=== PATIENT | male | born 1965 | race Caucasian/White ===

== ENCOUNTER → 2016-06-22 | Outpatient (CLI) | payer OTHER ==
--- NOTE | 2016-06-23 08:13 | XR ---
EXAMINATION TYPE: XR cervical spine comp DATE OF EXAM ORDERED: 06/22/2016 4:21 PM HISTORY: M54.2 Cervicalgia. COMPARISON: None. FINDINGS: There is a mild reversal of the normal cervical lordosis. Alignment is normal. Atlantoaxia l relationships are normal. The intervertebral soft tissues are normal. The intervertebral foramina a re not visualized on the left and poorly visualized on the right. There is uncovertebral joint diseas e at C6-7 as well as hypertrophic spondylosis at C4-5, C5-6 and C6-7. IMPRESSION: 1. SOMEWHAT LIMITED EXAMINATION. 2. NO ACUTE OSSEOUS LESION. 3. MODERATE DEGENERATIVE CHANGE.
--- NOTE | 2016-06-23 08:14 | XR ---
EXAMINATION TYPE: XR lumbar spine 2 or 3V DATE OF EXAM ORDERED: 06/22/2016 4:21 PM HISTORY: M54.5 Low back pain. COMPARISON: None. FINDINGS: Vertebral body height and alignment are maintained. There is no spinal IMPRESSION: 1. NO ACUTE OSSEOUS LESION. 2. DEGENERATIVE CHANGES DESCRIBED.
== END ==
LOC: RADXRMAIN 16:04
PROVIDERS: ATTEND Family Medicine
DX: M47.812 Spondylosis without myelopathy or radiculopathy, cervical region (principal); M47.816 Spondylosis without myelopathy or radiculopathy, lumbar region
CPT/HCPCS: 72050; 72100

== ENCOUNTER → 2016-07-21 | Outpatient (CLI) | payer OTHER ==
--- NOTE | 2016-07-21 11:28 | ECHOS ---
DATE OF SERVICE: 07/21/2016 AGE: 51Y SEX: M HT: 67 WT: 193 lbs. Protocol Wilner: X Others: Stress Echo Stage: III Dur. of Exercise: 9 minutes *Heart Rate Blood Pressure *Rest: 65 Rest: 120/64 * *Max. Achieved: 144 Maximum BP: 181/69 85% PMHR: 142 100% PMHR: 167 *METS: 9.6 INDICATIONS: Chest pain, short of breath. MEDICATIONS: INDICATIONS OF STUDY: Chest pain. STRESS DATA: Pretesting physical examination showed a heart rate of 65, pressure is 120/64 mmHg. Baseline EKG showed sinus rhythm. The patient exercised on the treadmill according to Wilner protocol for a total of 9 minutes and achieved 9.6 METs. Max heart rate was 144, which is about 86% of maximum predicted heart rate. Maximum blood pressure was 181/69 mmHg. Clinically, the patient did not experience any symptoms of chest pain or discomfort during the testing or in the recovery time. The patient's EKG did not show any evidence of ST changes compatible with ischemia. ECHOCARDIOGRAM IMAGES: On echocardiogram images from parasternal long axis view, parasternal short axis view, apical 4 chamber view and apical 2 chamber view were obtained as baseline images, at the peak of the heart rate, as well as on recovery and the echocardiogram images showed good augmentation in the left ventricular systolic function without any evidence of wall motion abnormalities consistent with ischemia. CONCLUSION: 1. Excellent exercise capacity. 2. Normal EKG in response to exercise. 3. Normal echocardiogram in response to exercise. 4. Essentially normal stress echocardiogram for this gentleman.
== END | disposition home or self-care (01) ==
LOC: RADNMMAIN 08:57
PROVIDERS: ATTEND Family Medicine
DX: R07.9 Chest pain, unspecified (principal)
CPT/HCPCS: 93017; 93350

== ENCOUNTER → 2022-01-10 | Outpatient (CLI) | payer BC ==
--- NOTE | 2022-01-11 02:43 | MR ---
EXAMINATION TYPE: MR knee LT wo con DATE OF EXAM: 01/10/2022 COMPARISON: None HISTORY: Left knee pain x 6 mos. Multiplanar multiecho imaging of the left knee performed without contrast. The anterior and posterior cruciate ligaments are intact. There is a mild knee joint effusion. The co llateral ligaments are intact. There is a large vertical tear through the posterior horn of the media l meniscus. There is also large horizontal tear through the posterior horn medial meniscus extending to the inferior surface. The lateral meniscus appears intact. No evidence of a fracture. No focal bone destruction. The patella appears intact. No significant join t space narrowing. IMPRESSION: Knee joint effusion. Large complex tear of the posterior horn medial meniscus. No fracture.
== END | disposition home or self-care (01) ==
LOC: RADMRIMAIN 17:23
PROVIDERS: ATTEND Orthopaedic Surgery Sports Medicine
DX: M23.322 Other meniscus derangements, posterior horn of medial meniscus, left knee (principal); M25.462 Effusion, left knee

== ENCOUNTER 2023-01-23 06:43 | Emergency (ER) | payer BC ==
--- NOTE | 2023-01-23 07:36 | ED ---
General Adult HPI - General Chief complaint: Abdominal Pain Stated complaint: Constipation Time Seen by Provider: 01/23/23 07:13 Source: patient, RN notes reviewed, old records reviewed Mode of arrival: wheelchair Limitations: no limitations - History of Present Illness Initial comments: 57-year-old male with rectal pain for the past 5 days. Pain began after having a large bowel movement. Patient denies rectal bleeding. States he had a colonoscopy within the past 10 years which she states was normal. Patient denies fever. Denies abdominal pain. Pain is only in his anus and rectum. Patient is a nonsmoker. No fever. No vomiting. Patient has colonoscopy scheduled which is 2 days from now. - Related Data Home Medications Medication Instructions Recorded Confirmed Ibuprofen 600 mg PO Q8H 01/23/23 01/25/23 Naproxen Sodium [Aleve] 220 mg PO BID 01/23/23 01/25/23 Allergies Allergy/AdvReac Type Severity Reaction Status Date / Time diphenhydramine Allergy Rash/Hives Verified 01/25/23 10:54 [From Benadryl] loratadine [From Claritin] Allergy Rash/Hives Verified 01/25/23 10:54 Review of Systems ROS Statement: Those systems with pertinent positive or pertinent negative responses have been documented in the HPI. ROS Other: All systems not noted in ROS Statement are negative. Past Medical History Past Medical History: No Reported History History of Any Multi-Drug Resistant Organisms: None Reported Past Surgical History: Orthopedic Surgery Additional Past Surgical History / Comment(s): knee, fingers Past Psychological History: No Psychological Hx Reported Smoking Status: Former smoker Past Alcohol Use History: Occasional Past Drug Use History: Marijuana General Exam Limitations: no limitations General appearance: alert, in no apparent distress Head exam: Present: atraumatic, normocephalic Eye exam: Present: normal appearance, PERRL ENT exam: Present: normal exam Neck exam: Present: normal inspection Respiratory exam: Present: normal lung sounds bilaterally. Absent: respiratory distress, wheezes Cardiovascular Exam: Present: regular rate, normal rhythm GI/Abdominal exam: Present: soft. Absent: distended, tenderness, guarding, rebound Rectal exam: Present: tenderness (Severe tenderness limiting exam, no large mass, no external hemorrhoid visible). Absent: black stool, bloody stool Extremities exam: Present: normal inspection Neurological exam: Present: alert, oriented X3, CN II-XII intact. Absent: motor sensory deficit Psychiatric exam: Present: normal affect, normal mood Skin exam: Present: warm, dry, intact. Absent: cyanosis, diaphoretic, erythema Course Vital Signs 01/23/23 01/23/23 07:08 08:21 Temperature 98.4 F 98 F Pulse Rate 67 58 L Respiratory 18 16 Rate Blood Pressure 161/89 150/80 O2 Sat by Pulse 98 99 Oximetry Medical Decision Making - Medical Decision Making Was pt. sent in by a medical professional or institution (, [facility]OR[facility], MARKETING REPRESENTATIVE, urgent care, hospital, or senior care...) When possible be specific @ -No Did you speak to anyone other than the patient for history (EMS, parent, family, police, friend...)? What history was obtained from this source @ -No Did you review nursing and triage notes (agree or disagree)? Why? @ -I reviewed and agree with nursing and triage notes Were old charts reviewed (outside hosp., previous admission, EMS record, old EKG, old radiological studies, urgent care reports/EKG's, senior care records)? Report findings @ -No old charts were reviewed Differential Diagnosis (chest pain, altered mental status, abdominal pain women, abdominal pain men, vaginal bleeding, weakness, fever, dyspnea, syncope, headache, dizziness, GI bleed, back pain, seizure, CVA, palpatations, mental health, musculoskeletal)? @Constipation, anal fissure, thrombosed hemorrhoid, rectal mass EKG interpreted by me (3pts min.). @ -As above X-rays interpreted by me (1pt min.). @ -None done CT interpreted by me (1pt min.). @ -None done U/S interpreted by me (1pt. min.). @ -None done What testing was considered but not performed or refused? (CT, X-rays, U/S, labs)? Why? @ -None What meds were considered but not given or refused? Why? @ -None Did you discuss the management of the patient with other professionals (professionals i.e. LEORA Ballard, MARKETING REPRESENTATIVE, lab, RT, psych nurse, community mental health social worker, chemistry technologist, teacher, driver license reviewing officer, immigration case worker)? Give summary @ -No Was smoking cessation discussed for >3mins.? @ -No Was critical care preformed (if so, how long)? @ -No Were there social determinants of health that impacted care today? How? (Homelessness, low income, unemployed, alcoholism, drug addiction, transportation, low edu. Level, literacy, decrease access to med. care, skilled nursing, rehab)? @ -No Was there de-escalation of care discussed even if they declined (Discuss DNR or withdrawal of care, Hospice)? DNR status @ -No What co-morbidities impacted this encounter? (DM, HTN, Smoking, COPD, CAD, Cancer, CVA, ARF, Chemo, Hep., AIDS, mental health diagnosis, sleep apnea, morbid obesity)? @ -None Was patient admitted / discharged? Hospital course, mention meds given and route, prescriptions, significant lab abnormalities, going to OR and other pertinent info. @ -[57-year-old male with pain at the anus after a large bowel movement. Patient has no abdominal tenderness, no rebound or guarding. He's afebrile. No vomiting. Rectal exam externally is unremarkable. No visualized hemorrhoids, no visualized mass. Thorough examination of the rectum is limited by patient's discomfort. He likely has fissure. He will be prescribed topical lidocaine and stool softeners. He is instructed to use sitz bath. He will follow-up with his primary care provider and if symptoms should change or worsen he will return to the emergency department. He has a colonoscopy scheduled for 2 days from now he should follow through with this. Undiagnosed new problem with uncertain prognosis? @ -No Drug Therapy requiring intensive monitoring for toxicity (Heparin, Nitro, Insulin, Cardizem)? @ -No Were any procedures done? @ -No Diagnosis/symptom? @Anal pain Acute, or Chronic, or Acute on Chronic? @ -acute Uncomplicated (without systemic symptoms) or Complicated (systemic symptoms)? @ -[default] Side effects of treatment? @ -[No] Exacerbation, Progression, or Severe Exacerbation? @ -[No] Poses a threat to life or bodily function? How? (Chest pain, USA, [place], pneumonia, PE, COPD, DKA, ARF, appy, cholecystitis, CVA, Diverticulitis, Homicidal, Suicidal, threat to staff... and all critical care pts) @ -[No] Disposition Clinical Impression: Anal or rectal pain Disposition: HOME SELF-CARE Condition: Fair Instructions (If sedation given, give patient instructions): Rectal Pain (ED) Additional Instructions: Please apply topical ointment and use sitz bath. Please follow up with her primary care provider. Is patient prescribed a controlled substance at d/c from ED?: No Referrals: Brando Pacheco MD [Primary Care Provider] - 1-2 days Time of Disposition: 07:53
--- NOTE | 2023-01-23 07:49 | XR ---
EXAMINATION TYPE: XR KUB DATE OF EXAM: 01/23/2023 COMPARISON: None HISTORY: Abdomen pain, constipation TECHNIQUE: Abdomen is examined in the upright view. FINDINGS: Normal colonic bowel gas is present. Some nonspecific small bowel gas left upper quadrant. No suspicious air-fluid levels or differential air-fluid levels are present. No free air is present. Psoas margins are normal. Organomegaly is not present. No significant fecal retention is evident. IMPRESSION: 1. Nonspecific abdomen.
[2023-01-23 08:38] VITALS: BP 150/80; PULSE 58; RESP 16; TEMP 98
== END 2023-01-23 08:23 | disposition home or self-care (01) ==
LOC: EC 06:43
DX: K62.89 Other specified diseases of anus and rectum (principal); F12.90 Cannabis use, unspecified, uncomplicated; Z88.8 Allergy status to other drugs, medicaments and biological substances; Z87.891 Personal history of nicotine dependence
CPT/HCPCS: 74018; 99283; 99284

== ENCOUNTER 2023-01-25 10:14 | Day surgery (SDC) | payer BC ==
[2023-01-25] MEDS ORDERED: LACTATED RINGERS 1,000 ML IV ONE (10:50)
[2023-01-25 11:26] VITALS: TEMP 98
[2023-01-25] MEDS ORDERED: PROPOFOL 10 MG/ML 20 ML VIAL IV ONE (11:34)
--- NOTE | 2023-01-25 11:46 | P.OP ---
Date of Procedure: 01/25/23 Preoperative Diagnosis: Change in bowel habits constipation Postoperative Diagnosis: Normal colonoscopy Procedure(s) Performed: Colonoscopy Anesthesia: MAC Surgeon: Ambrocio Sanchez Pathology: none sent Condition: stable Disposition: PACU Description of Procedure: PROCEDURE: The patient was placed on the endoscopy table in the lateral position. Digital rectal examination was performed which revealed no abnormalities. The prostate was symmetrical without nodules. Flexible colonoscope was then placed in the patient's anus and passed throughout the entire colon. The ileocecal valve was visualized. The cecum, ascending, transverse, descending and sigmoid colon were normal. The rectum was normal as well. There were no masses, polyps or diverticula noted in the entire colon. SUMMARY OF FINDINGS: Normal colonoscopy.
[2023-01-25 12:14] VITALS: BP 147/92; PULSE 67; RESP 20
== END 2023-01-25 12:23 | disposition home or self-care (01) ==
LOC: ORWHC2ENDO 10:14
PROVIDERS: ATTEND Surgery
DX: K59.00 Constipation, unspecified (principal); F10.90 Alcohol use, unspecified, uncomplicated; Z88.8 Allergy status to other drugs, medicaments and biological substances
CPT/HCPCS: 45378; J2704

== ENCOUNTER 2023-01-29 10:05 | Observation (INO) | payer BC ==
[2023-01-29 11:29] LABS: Basophils % (A) 0 %; Eosinophils # (A) 0.1 k/uL (0-0.7); Eosinophils % (A) 1 %; HCT 41.1 % (39.0-53.0); Lymphocytes # (A) 1.8 k/uL (1.0-4.8); Lymphocytes % (A) 12 %; MCH 30.7 pg (25.0-35.0); MCV 90.5 fL (80.0-100.0); Mean Platelet Volume 7.9; Monocytes # (A) 0.6 k/uL (0-1.0); Monocytes % (A) 4 %; Neutrophils # (A) 12.5 k/uL (1.3-7.7); Neutrophils % (A) 82 %; Platelet Count 456 k/uL (150-450); RBC 4.54 m/uL (4.30-5.90); RDW 12.3 % (11.5-15.5); WBC 15.1 k/uL (3.8-10.6)
[2023-01-29 11:49] LABS: ALT 15 U/L (4-49); AST 21 U/L (17-59); African American GFR (CKD) >90 (>60 ml/min/1.73 sqM); Albumin 3.5 g/dL (3.5-5.0); Alkaline Phosphatase 83 U/L (38-126); Anion Gap 11 mmol/L; Blood Urea Nitrogen 12 mg/dL (9-20); Calcium 8.8 mg/dL (8.4-10.2); Carbon Dioxide 25 mmol/L (22-30); Chloride 103 mmol/L (98-107); Glucose 106 mg/dL (74-99); Non-African American GFR(CKD) >90 (>60 ml/min/1.73 sqM); Potassium 4.1 mmol/L (3.5-5.1); Sodium 139 mmol/L (137-145); Total Bilirubin 0.5 mg/dL (0.2-1.3); Total Protein 6.5 g/dL (6.3-8.2)
--- NOTE | 2023-01-29 11:54 | CT ---
EXAMINATION TYPE: CT pelvis w con DATE OF EXAM: 01/29/2023 COMPARISON: None INDICATION: Rectal/tailbone pain. Hurts with bowel movement. Recently had clean colonoscopy. DLP: 698 mGycm, Automated exposure control for dose reduction was used. CONTRAST: 100 mL of Isovue 300. Study performed without Oral Contrast TECHNIQUE: Axial images were obtained from above the diaphragm to the pubic rami in the axial plane a t 5 mm thick sections. Reconstructed images are reviewed on the computer in the coronal plane. FINDINGS: CT PELVIS: Loops of bowel within the abdomen and pelvis are normal. This study is performed without oral con trast limiting bowel evaluation. Appendix: Normal as visualized. Urinary bladder: Normal. Genitourinary structures: Prostate appears normal. Osseous structures: No suspicious lytic or sclerotic lesions. Small bone islands within the neck of t he right hip. Sacrum and coccyx appear intact. No acute osseous abnormality of the sacrum or coccyx IMPRESSION: 1. No suspicious abnormality to account for pain in the tailbone.
[2023-01-29] MEDS ORDERED: ONDANSETRON 4 MG/2 ML VIAL IVP PRN (13:45)
[2023-01-29] MEDS ORDERED: NALOXONE 0.4 MG/ML 1 ML VIAL IV PRN (13:45)
[2023-01-29] MEDS ORDERED: HYDROmorphone 0.5 MG/0.5 ML SYRINGE IVP PRN (13:45)
[2023-01-29] MEDS ORDERED: HYDROcodone/APAP 5-325MG 1 EACH TAB PO PRN (13:45)
--- NOTE | 2023-01-29 14:05 | ED ---
General Adult HPI - General Chief complaint: Back Pain/Injury Stated complaint: Pain in tailbone Time Seen by Provider: 01/29/23 10:33 Source: patient, RN notes reviewed Mode of arrival: ambulatory Limitations: no limitations - History of Present Illness Initial comments: 4-year-old male presents emergency department with chief complaint of or rectal pain. Patient states she's been having increasing symptoms. Patient was seen in emergency Department last week told to follow-up colonoscopy. He states he did follow-up with colonoscopy which was clear. He continues to have pain worse when he sits he states he has pain with bowel movement. He reports night sweats, possible fever and chills. - Related Data Home Medications Medication Instructions Recorded Confirmed Ibuprofen 600 mg PO Q8H 01/23/23 01/25/23 Naproxen Sodium [Aleve] 220 mg PO BID 01/23/23 01/25/23 Allergies Allergy/AdvReac Type Severity Reaction Status Date / Time diphenhydramine Allergy Rash/Hives Verified 01/29/23 10:12 [From Benadryl] loratadine [From Claritin] Allergy Rash/Hives Verified 01/29/23 10:12 Review of Systems ROS Statement: Those systems with pertinent positive or pertinent negative responses have been documented in the HPI. ROS Other: All systems not noted in ROS Statement are negative. Past Medical History Past Medical History: No Reported History History of Any Multi-Drug Resistant Organisms: None Reported Past Surgical History: Orthopedic Surgery Additional Past Surgical History / Comment(s): knee, fingers Past Psychological History: No Psychological Hx Reported Smoking Status: Former smoker Past Alcohol Use History: Occasional Past Drug Use History: Marijuana General Exam Limitations: no limitations General appearance: alert, in no apparent distress Head exam: Present: atraumatic, normocephalic, normal inspection Neck exam: Present: normal inspection. Absent: tenderness, meningismus, lymphadenopathy Respiratory exam: Present: normal lung sounds bilaterally. Absent: respiratory distress, wheezes, rales, rhonchi, stridor Cardiovascular Exam: Present: regular rate, normal rhythm, normal heart sounds. Absent: systolic murmur, diastolic murmur, rubs, gallop, clicks GI/Abdominal exam: Present: soft, normal bowel sounds. Absent: distended, tenderness, guarding, rebound, rigid Rectal exam: Present: tenderness. Absent: mass Course Vital Signs 01/29/23 10:09 Temperature 98.1 F Pulse Rate 76 Respiratory 20 Rate Blood Pressure 157/94 O2 Sat by Pulse 99 Oximetry Medical Decision Making - Medical Decision Making Was pt. sent in by a medical professional or institution (LEORA Ballard, LUGGAGE ATTENDANT, urgent care, hospital, or prison...) When possible be specific @ -Surgeon Did you speak to anyone other than the patient for history (EMS, parent, family, police, friend...)? What history was obtained from this source @ -No Did you review nursing and triage notes (agree or disagree)? Why? @ -I reviewed and agree with nursing and triage notes Were old charts reviewed (outside hosp., previous admission, EMS record, old EKG, old radiological studies, urgent care reports/EKG's, prison records)? Report findings @ -No old charts were reviewed Differential Diagnosis (chest pain, altered mental status, abdominal pain women, abdominal pain men, vaginal bleeding, weakness, fever, dyspnea, syncope, headache, dizziness, GI bleed, back pain, seizure, CVA, palpatations, mental health, musculoskeletal)? @ -[Perirectal abscess, pilonidal cyst, abscess, hemorrhoids EKG interpreted by me (3pts min.). @ -None X-rays interpreted by me (1pt min.). @ -None done CT interpreted by me (1pt min.). @ -CT pelvis shows evidence of inflammatory changes around the rectum concerning for developing abscess U/S interpreted by me (1pt. min.). @ -None done What testing was considered but not performed or refused? (CT, X-rays, U/S, labs)? Why? @ -None What meds were considered but not given or refused? Why? @ -None Did you discuss the management of the patient with other professionals (professionals i.e. LEORA Ballard, LUGGAGE ATTENDANT, lab, RT, psych nurse, social media community manager, entry level programmer, teacher, banking services officer, case making machine operator)? Give summary @ -[Dr. Sanchez for admission secondary to her rectal abscess, leukocytosis Was smoking cessation discussed for >3mins.? @ -No Was critical care preformed (if so, how long)? @ -No Were there social determinants of health that impacted care today? How? (Homelessness, low income, unemployed, alcoholism, drug addiction, transportation, low edu. Level, literacy, decrease access to med. care, prison, rehab)? @ -No Was there de-escalation of care discussed even if they declined (Discuss DNR or withdrawal of care, Hospice)? DNR status @ -No What co-morbidities impacted this encounter? (DM, HTN, Smoking, COPD, CAD, Cancer, CVA, ARF, Chemo, Hep., AIDS, mental health diagnosis, sleep apnea, morbid obesity)? @ -None Was patient admitted / discharged? Hospital course, mention meds given and route, prescriptions, significant lab abnormalities, going to OR and other per tinent info. @ -Admitted patient will be admitted to the surgeon on IV antibiotics for perirectal abscess Undiagnosed new problem with uncertain prognosis? @ -No Drug Therapy requiring intensive monitoring for toxicity (Heparin, Nitro, Insulin, Cardizem)? @ -No Were any procedures done? @ -No Diagnosis/symptom? @ -Perirectal abscess Acute, or Chronic, or Acute on Chronic? @ -Acute Uncomplicated (without systemic symptoms) or Complicated (systemic symptoms)? @ -Uncomplicated Side effects of treatment? @ -No Exacerbation, Progression, or Severe Exacerbation? @ -No Poses a threat to life or bodily function? How? (Chest pain, USA, [place], pneumonia, PE, COPD, DKA, ARF, appy, cholecystitis, CVA, Diverticulitis, Homicidal, Suicidal, threat to staff... and all critical care pts) @ -No - Lab Data Result diagrams: 01/29/23 11:07 01/29/23 11:07 Lab Results 01/29/23 01/29/23 01/29/23 Range/Units 11:07 11:07 11:07 WBC 15.1 H (3.8-10.6) k/uL RBC 4.54 (4.30-5.90) m/uL Hgb 14.0 (13.0-17.5) gm/dL Hct 41.1 (39.0-53.0) % MCV 90.5 (80.0-100.0) fL MCH 30.7 (25.0-35.0) pg MCHC 34.0 (31.0-37.0) g/dL RDW 12.3 (11.5-15.5) % Plt Count 456 H (150-450) k/uL MPV 7.9 Neutrophils % 82 % Lymphocytes % 12 % Monocytes % 4 % Eosinophils % 1 % Basophils % 0 % Neutrophils # 12.5 H (1.3-7.7) k/uL Lymphocytes # 1.8 (1.0-4.8) k/uL Monocytes # 0.6 (0-1.0) k/uL Eosinophils # 0.1 (0-0.7) k/uL Basophils # 0.0 (0-0.2) k/uL Sodium 139 (137-145) mmol/L Potassium 4.1 (3.5-5.1) mmol/L Chloride 103 (98-107) mmol/L Carbon Dioxide 25 (22-30) mmol/L Anion Gap 11 mmol/L BUN 12 (9-20) mg/dL Creatinine 0.80 (0.66-1.25) mg/dL Est GFR (CKD-EPI)AfAm >90 (>60 ml/min/1.73 sqM) Est GFR (CKD-EPI)NonAf >90 (>60 ml/min/1.73 sqM) Glucose 106 H (74-99) mg/dL Plasma Lactic Acid Mohinder 1.0 (0.7-2.0) mmol/L Calcium 8.8 (8.4-10.2) mg/dL Total Bilirubin 0.5 (0.2-1.3) mg/dL AST 21 (17-59) U/L ALT 15 (4-49) U/L Alkaline Phosphatase 83 (38-126) U/L Total Protein 6.5 (6.3-8.2) g/dL Albumin 3.5 (3.5-5.0) g/dL Disposition Clinical Impression: Perirectal abscess Disposition: ADMITTED IP TO THIS HOSP Condition: Fair Referrals: Brando Pacheco MD [Primary Care Provider] - 1-2 days Time of Disposition: 13:08
[2023-01-29] MEDS: PIPERACILLIN-TAZOBACTAM 3.375 GM in SODIUM CHLORIDE 0.9% 100 ML IVPB SCH (15:22)
--- NOTE | 2023-01-29 15:36 | P.GSHP ---
History of Present Illness H&P Date: 01/29/23 CHIEF COMPLAINT: Rectal pain HISTORY OF PRESENT ILLNESS: This is a 4-year-old male who presented to the hospital with complaint of rectal pain 2 weeks. He reports having severe constipation and straining to have bowel movements and then afterwards started have significant rectal pain. He continues to have pain after bowel movements. He has been feverish with chills and sweats. He describes the pain around the rectum as burning. He denies any blood in the stools. He had a normal colonoscopy on 01/25/2023. Computed tomography scan of pelvis there is some perirectal thickening. There is some hypodensity measuring 1.7 x 1.4 cm. A developing perirectal abscess posterior to the rectum may be present. Phlegmon formation could be considered. Patient denies any prior history of abscesses. Denies any history of diabetes. PAST MEDICAL HISTORY: none PAST SURGICAL HISTORY: See below MEDICATIONS: See below ALLERGIES: See below SOCIAL HISTORY: No illicit drug use. REVIEW OF SYSTEMS: CONSTITUTIONAL: Denies fever or chills. HEENT: Denies blurred vision, vision changes, or eye pain. Denies hemoptysis CARDIOVASCULAR: Denies chest pain or pressure. RESPIRATORY: No shortness of breath. GASTROINTESTINAL: See HPI for pertinent findings HEMATOLOGIC: Denies bleeding disorders. GENITOURINARY: Denies any blood in urine or increased urinary frequency. SKIN: Denies pruitis. Denies rash. PHYSICAL EXAM: VITAL SIGNS: Reviewed GENERAL: Well-developed in no acute distress. HEENT: No sclera icterus. Extraocular movements grossly intact. Moist buccal mucosa. Head is atraumatic, normocephalic. No nasal drainage. ABDOMEN: Soft. Nondistended. nontender NEUROLOGIC: Alert and oriented. Cranial nerves II through XII grossly intact. Rectal: Patient very tender to palpation posterior to the anus. No drainage, erythema noted LABORATORY DATA: WBC 15.1 Hgb 14.0 platelets 456 Sodium 139 potassium 4.1 creatinine 0.80 Lactic acid 1.0 Glucose 106 IMAGING: Computed tomography scan abdomen and pelvis perirectal thickening. Hypodensity measuring approximately 1.7 x 1.4 cm. Developing perirectal abscess posterior to the rectum may be present. Phlegmon formation could be considered. Large hypodense area within the expected region of the right iliac chain region. ASSESSMENT: 1. Pain posterior to rectum. Computed tomography scan showing hypodensity and possible developing perirectal abscess or phlegmon PLAN: -Start IV antibiotics -Continue to observe -Continue pain management -Continue clear liquids -Repeat labs in a.m. -DVT prophylaxis subcu heparin Physician [employer] Tender note has been reviewed by physician. Signing provider agrees with the documented findings, assessment, and plan of care. Past Medical History Past Medical History: No Reported History History of Any Multi-Drug Resistant Organisms: None Reported Past Surgical History: Orthopedic Surgery Additional Past Surgical History / Comment(s): knee, fingers Past Psychological History: No Psychological Hx Reported Smoking Status: Former smoker Past Alcohol Use History: Occasional Past Drug Use History: Marijuana Medications and Allergies Home Medications Medication Instructions Recorded Confirmed Type Acetaminophen Tab [Tylenol] 650 mg PO Q6H PRN 01/29/23 01/29/23 History Amoxicillin 500 mg PO TID 01/29/23 01/29/23 History Docusate Sodium [Dok] 100 mg PO BID PRN 01/29/23 01/29/23 History Ibuprofen [Motrin] 600 mg PO Q6HR PRN 01/29/23 01/29/23 History Allergies Allergy/AdvReac Type Severity Reaction Status Date / Time diphenhydramine Allergy Rash/Hives Verified 01/29/23 14:40 [From Benadryl] loratadine [From Claritin] Allergy Rash/Hives Verified 01/29/23 14:40 Surgical - Exam Vital Signs Temp Pulse Resp BP Pulse Ox 98.1 F 76 20 157/94 99 01/29/23 10:09 01/29/23 10:09 01/29/23 10:09 01/29/23 10:09 01/29/23 10:09 Results - Labs 01/29/23 11:07 01/29/23 11:07 Abnormal Lab Results - Last 24 Hours (Table) 01/29/23 01/29/23 Range/Units 11:07 11:07 WBC 15.1 H (3.8-10.6) k/uL Plt Count 456 H (150-450) k/uL Neutrophils # 12.5 H (1.3-7.7) k/uL Glucose 106 H (74-99) mg/dL Diabetes panel 01/29/23 Range/Units 11:07 Sodium 139 (137-145) mmol/L Potassium 4.1 (3.5-5.1) mmol/L Chloride 103 (98-107) mmol/L Carbon Dioxide 25 (22-30) mmol/L BUN 12 (9-20) mg/dL Creatinine 0.80 (0.66-1.25) mg/dL Glucose 106 H (74-99) mg/dL Calcium 8.8 (8.4-10.2) mg/dL AST 21 (17-59) U/L ALT 15 (4-49) U/L Alkaline Phosphatase 83 (38-126) U/L Total Protein 6.5 (6.3-8.2) g/dL Albumin 3.5 (3.5-5.0) g/dL Calcium panel 01/29/23 Range/Units 11:07 Calcium 8.8 (8.4-10.2) mg/dL Albumin 3.5 (3.5-5.0) g/dL Pituitary panel 01/29/23 Range/Units 11:07 Sodium 139 (137-145) mmol/L Potassium 4.1 (3.5-5.1) mmol/L Chloride 103 (98-107) mmol/L Carbon Dioxide 25 (22-30) mmol/L BUN 12 (9-20) mg/dL Creatinine 0.80 (0.66-1.25) mg/dL Glucose 106 H (74-99) mg/dL Calcium 8.8 (8.4-10.2) mg/dL Adrenal panel 01/29/23 Range/Units 11:07 Sodium 139 (137-145) mmol/L Potassium 4.1 (3.5-5.1) mmol/L Chloride 103 (98-107) mmol/L Carbon Dioxide 25 (22-30) mmol/L BUN 12 (9-20) mg/dL Creatinine 0.80 (0.66-1.25) mg/dL Glucose 106 H (74-99) mg/dL Calcium 8.8 (8.4-10.2) mg/dL Total Bilirubin 0.5 (0.2-1.3) mg/dL AST 21 (17-59) U/L ALT 15 (4-49) U/L Alkaline Phosphatase 83 (38-126) U/L Total Protein 6.5 (6.3-8.2) g/dL Albumin 3.5 (3.5-5.0) g/dL
[2023-01-29] MEDS: ACETAMINOPHEN TAB 325 MG TAB PO PRN (16:52)
[2023-01-29] MEDS: FAMOTIDINE 20 MG TAB PO SCH (21:02)
[2023-01-29] MEDS: HEPARIN SODIUM,PORCINE 5,000 UNIT/ML 1 ML VIAL SQ SCH (21:02)
[2023-01-30] MEDS: PIPERACILLIN-TAZOBACTAM 3.375 GM in SODIUM CHLORIDE 0.9% 100 ML IVPB SCH ×4 (00:16→23:25)
[2023-01-30] MEDS: HEPARIN SODIUM,PORCINE 5,000 UNIT/ML 1 ML VIAL SQ SCH ×2 (08:13→19:56)
[2023-01-30] MEDS: FAMOTIDINE 20 MG TAB PO SCH ×2 (08:14→19:56)
[2023-01-30 11:10] LABS: Basophils # (A) 0.05 X 10*3/uL (0.00-0.10); Basophils % (A) 0.4 %; Eosinophils # (A) 0.21 X 10*3/uL (0.04-0.35); Eosinophils % (A) 1.6 %; HCT 39.2 % (39.6-50.0); HGB 13.1 g/dL (13.0-17.0); Lymphocytes # (A) 2.92 X 10*3/uL (0.90-5.00); Lymphocytes % (A) 22.7 %; MCH 30.4 pg (27.0-32.0); MCHC 33.4 g/dL (32.0-37.0); Mean Platelet Volume 10.3 FL (9.5-12.2); Monocytes # (A) 0.95 X 10*3/uL (0.20-1.00); Monocytes % (A) 7.4 %; NRBC Per 100 WBC 0 X 10*3/uL (0.00-0.01); Neutrophils # (A) 8.68 X 10*3/uL (1.80-7.70); Neutrophils % (A) 67.6 %; Platelet Count 504 X 10*3/uL (140-440); RBC 4.31 X 10*6/uL (4.40-5.60); RDW 12.3 % (11.5-14.5); WBC 12.85 X 10*3/uL (4.50-10.00)
--- NOTE | 2023-01-30 16:27 | P.PN ---
Subjective Progress Note Date: 01/30/23 CHIEF COMPLAINT: Rectal pain HISTORY OF PRESENT ILLNESS: Patient reports his perirectal pain is improving. He is able to walk easier. He is able to sit. WBC is down from 15-12.85 PHYSICAL EXAM: VITAL SIGNS: Reviewed. GENERAL: Well-developed in no acute distress. ABDOMEN: Soft. Nondistended. Nontender. NEUROLOGIC: Alert and oriented. Cranial nerves II through XII grossly intact. ASSESSMENT: 1. Perirectal phlegmon PLAN: -Continue antibiotics -Consult infectious disease -Continue pain management -Advance diet to full liquids -Repeat CBC in a.m. -No surgical intervention planned at this time Physician Director Medical Economics note has been reviewed by physician. Signing provider agrees with the documented findings, assessment, and plan of care. Objective - Vital Signs Vital signs: Vital Signs Temp 98.2 F 01/30/23 07:41 Pulse 71 01/30/23 07:41 Resp 16 01/30/23 07:41 BP 151/77 01/30/23 07:41 Pulse Ox 99 01/30/23 07:41 FiO2 Intake & Output 01/29/23 01/30/23 01/30/23 18:59 06:59 18:59 Weight 83.915 kg - Labs CBC & Chem 7: 01/30/23 07:41 01/29/23 11:07 Labs: Abnormal Lab Results - Last 24 Hours (Table) 01/30/23 Range/Units 07:41 WBC 12.85 H (4.50-10.00) X 10*3/uL RBC 4.31 L (4.40-5.60) X 10*6/uL Hct 39.2 L (39.6-50.0) % Plt Count 504 H (140-440) X 10*3/uL Neutrophils # 8.68 H (1.80-7.70) X 10*3/uL
--- NOTE | 2023-01-30 23:13 | P.CONS ---
History of Present Illness - Reason for Consult Consult date: 01/30/23 - History of Present Illness Patient is a 58-year-old male with no significant past medical history patient apparently mentioned he was constipated about 2 weeks ago and the patient really forced it out after the bowel movement the patient noticed to have some discomfort in his rectal area that has progressively get worse to the point that the patient did have difficulty walking with it patient has been evaluated by general surgery in the outpatient setting as well as in the ER and the patient was given some pain medication along with stool softener patient also have a colonoscopy done in the outpatient setting and was told everything was okay patient mention he did have worsening symptoms of pain to the perirectal area describing it to be severe without any radiation and associated difficulty walking or sitting patient denies having any drainage with the symptoms the patient was advised to go to the ER patient on presentation to the hospital was afebrile did have 1 low-grade fever of 99.3 F patient did have a white count of 15.1 with a left shift creatinine 0.80 limits of the normal patient did have a CT of the pelvis with evidence of perirectal thickening hyperdensity measuring 1.7X 1.4 cm developing perirectal abscess or phlegmon formation should be considered patient was admitted to the hospital started on Zosyn infectious disease was consulted today for further management of antibiotic therapy Past Medical History Past Medical History: No Reported History History of Any Multi-Drug Resistant Organisms: None Reported Past Surgical History: Orthopedic Surgery Additional Past Surgical History / Comment(s): knee, fingers Past Psychological History: No Psychological Hx Reported Smoking Status: Former smoker Past Alcohol Use History: Occasional Past Drug Use History: Marijuana - Past Family History Brother(s) Family Medical History: Diabetes Mellitus Additional Family Medical History / Comment(s): heart cath with stents, [place] Medications and Allergies Home Medications Medication Instructions Recorded Confirmed Type Acetaminophen Tab [Tylenol] 650 mg PO Q6H PRN 01/29/23 01/29/23 History Amoxicillin 500 mg PO TID 01/29/23 01/29/23 History Docusate Sodium [Dok] 100 mg PO BID PRN 01/29/23 01/29/23 History Ibuprofen [Motrin] 600 mg PO Q6HR PRN 01/29/23 01/29/23 History Allergies Allergy/AdvReac Type Severity Reaction Status Date / Time diphenhydramine Allergy Rash/Hives Verified 01/29/23 14:40 [From Benadryl] loratadine [From Claritin] Allergy Rash/Hives Verified 01/29/23 14:40 Physical Exam Vitals: Vital Signs Temp Pulse Resp BP Pulse Ox 01/30/23 07:41 98.2 F 71 16 151/77 99 01/30/23 02:28 97.9 F 76 18 133/77 96 Intake and Output 01/30/23 01/30/23 01/30/23 06:59 14:59 22:59 Other: Weight 83.915 kg Results CBC & Chem 7: 01/30/23 07:41 01/29/23 11:07 Labs: Abnormal Lab Results - Last 24 Hours (Table) 01/30/23 Range/Units 07:41 WBC 12.85 H (4.50-10.00) X 10*3/uL RBC 4.31 L (4.40-5.60) X 10*6/uL Hct 39.2 L (39.6-50.0) % Plt Count 504 H (140-440) X 10*3/uL Neutrophils # 8.68 H (1.80-7.70) X 10*3/uL Assessment and Plan Plan: 1patient was in the hospital with increasing pain to the perirectal area started about 2 weeks ago after the patient did have a hard bowel movement all with the patient really straining on now with evidence of abnormal pelvic CT concerning for perirectal inflammation/phlegmon formation and also have elevated white count likely pathogen need to cover will be enteric gram-negative both aerobes and anaerobes 2-Zosyn 3.375 g every 8 hour should provide adequate antibiotic coverage and will be continued We will follow on clinical condition and cultures to further adjust medication if needed Thank you for this consultation we will follow the patient along with you Dictation was produced using [employer] dictation software. please excuse any grammatical, word or spelling errors. Time with Patient: Greater than 30
[2023-01-30] MEDS: ACETAMINOPHEN TAB 325 MG TAB PO PRN (23:23)
[2023-01-31 08:04] VITALS: BP 151/87; PULSE 62; RESP 18; TEMP 98.1
[2023-01-31] MEDS: FAMOTIDINE 20 MG TAB PO SCH (08:16)
[2023-01-31] MEDS: PIPERACILLIN-TAZOBACTAM 3.375 GM in SODIUM CHLORIDE 0.9% 100 ML IVPB SCH (08:16)
[2023-01-31] MEDS: HEPARIN SODIUM,PORCINE 5,000 UNIT/ML 1 ML VIAL SQ SCH (08:16)
[2023-01-31 08:39] LABS: Basophils # (A) 0.03 X 10*3/uL (0.00-0.10); Basophils % (A) 0.3 %; Eosinophils # (A) 0.23 X 10*3/uL (0.04-0.35); Eosinophils % (A) 2.7 %; HCT 40.6 % (39.6-50.0); HGB 13.8 g/dL (13.0-17.0); Lymphocytes # (A) 2.58 X 10*3/uL (0.90-5.00); Lymphocytes % (A) 29.9 %; MCV 88.3 FL (80.0-97.0); Mean Platelet Volume 9.6 FL (9.5-12.2); Monocytes # (A) 0.69 X 10*3/uL (0.20-1.00); NRBC Per 100 WBC 0 X 10*3/uL (0.00-0.01); Neutrophils # (A) 5.06 X 10*3/uL (1.80-7.70); Neutrophils % (A) 58.8 %; Platelet Count 499 X 10*3/uL (140-440); RDW 12.3 % (11.5-14.5); WBC 8.62 X 10*3/uL (4.50-10.00)
--- NOTE | 2023-01-31 12:30 | P.DS ---
Providers Date of admission: 01/29/23 13:49 Expected date of discharge: 01/31/23 Attending physician: Ambrocio Sanchez Consults: 01/30/23 15:04 Consult Physician Routine Consulting Provider: Abdelrahman Mattson Consult Reason/Comments: Perirectal phlegmon Do you want consulting provider notified?: Yes Primary care physician: Brando Velasquez [facility] Course: Discharge diagnosis 1. Perirectal phlegmon Hospital course This is a 58-year-old male who presented to the hospital with complaints of pain located around the perirectal area. Computed tomography scan of the pelvis completed reported some perirectal thickening. Hypodensity measuring approximately 1.7 x 1.4 cm. Developing perirectal abscess posterior to the rectum may be present. Phlegmon information could be considered. Patient treated with IV antibiotics for a perirectal phlegmon. Patient's pain has improved. He is ambulating and is able to sit. He is tolerating diet. Afebrile. His white count has normalized. Patient will be discharged home with oral antibiotics. He is stable for discharge. Please refer to chart for any further details. Physician Manager Research note has been reviewed by physician. Signing provider agrees with the documented findings, assessment, and plan of care. Patient Condition at Discharge: Stable Plan - Discharge Summary Discharge Rx Participant: Yes New Discharge Prescriptions: New metroNIDAZOLE [Flagyl] 500 mg PO TID 10 Days #30 tab Levofloxacin [Levaquin] 500 mg PO DAILY 10 Days #10 tab Ibuprofen [Motrin] 600 mg PO Q8HR PRN #30 tab PRN Reason: Pain oxyCODONE HCL [OxyIR] 5 mg PO Q6H PRN 3 Days #12 tab PRN Reason: Pain Continue Docusate Sodium [Dok] 100 mg PO BID PRN PRN Reason: Constipation Acetaminophen Tab [Tylenol] 650 mg PO Q6H PRN PRN Reason: Fever And/ Or Pain Discontinued Ibuprofen [Motrin] 600 mg PO Q6HR PRN PRN Reason: Fever And/ Or Pain Amoxicillin 500 mg PO TID Discharge Medication List Acetaminophen Tab [Tylenol] 650 mg PO Q6H PRN 01/29/23 [History] Docusate Sodium [Dok] 100 mg PO BID PRN 01/29/23 [History] Ibuprofen [Motrin] 600 mg PO Q8HR PRN #30 tab 01/31/23 [Rx] Levofloxacin [Levaquin] 500 mg PO DAILY 10 Days #10 tab 01/31/23 [Rx] metroNIDAZOLE [Flagyl] 500 mg PO TID 10 Days #30 tab 01/31/23 [Rx] oxyCODONE HCL [OxyIR] 5 mg PO Q6H PRN 3 Days #12 tab 01/31/23 [Rx] Follow up Appointment(s)/Referral(s): Brando Pacheco MD [Primary Care Provider] - 1-2 days Ambrocio Sanchez MD [STAFF PHYSICIAN] - 02/13/23 1:00 pm Activity/Diet/Wound Care/Special Instructions: Shower Daily Regular diet Discharge Disposition: HOME SELF-CARE
== END 2023-01-31 12:30 | disposition home or self-care (01) ==
LOC: EC 10:05 → 6NMEDSUR 13:49
PROVIDERS: ADMIT Surgery; ATTEND Surgery
DX: K61.1 Rectal abscess (principal); Z87.891 Personal history of nicotine dependence
CPT/HCPCS: 96366 ×4; 96372 ×4; 96365; 96375; 99285; 36415; 80053; 83605; 85025 ×3; 87040; 72193; G0378 ×3; J2543 ×3; J1644 ×3; J1170; Q9967

== ENCOUNTER → 2024-01-01 | Outpatient (CLI) | payer BC ==
[2024-01-01 16:32] VITALS: BP 144/90; PULSE 61; RESP 18; TEMP 97.7
--- NOTE | 2024-01-01 16:54 | P.SLEEP ---
History of Present Illness H&P Date: 01/01/24 The patient has been diagnosed having sleep apnea several years back. At that time, the patient was given a home sleep study through his primary care physician. Subsequently, he was given a CPAP machine which she tried for few days and he was unable to tolerate and returned the machine back. Since then, the patient has lost around 20 pounds. He is coming in for evaluation as his was very much concerned of his ongoing snoring. Nevertheless, the patient clearly has a component of insufficient sleep syndrome. He works in [employer] and he lives and [place]. He goes back and forth every day and he works from 5 AM till 5 PM. He goes to bed between 10 to 11 PM and he wakes up 3:10 AM in the morning. As such, the patient is averaging around 4 to 4-1/2 hours of sleep. On weekends, he gets out of bed at around 6 AM and even sleeps approximately 6 to 7 hours. While on the job, he is functional. Does not fall asleep unless he is quite inactive. Does not fall asleep while driving. No 70 motor vehicle accident because of feeling drowsy or sleepy. As mentioned, the patient has lost around 20 pounds. His current body mass index is down to 32.9. No angina. No palpitations. Not nighttime chest pain or shortness of breath. No restlessness in lower extremities. No nocturia. Denies waking up choking and gasping for air. No nightmares. No anxiety. No depression. Does not take any naps after he comes back from work. He gets busy around the house and ultimately goes to bed and sleep at around 10 PM. No sleep paralysis. No hallucinations. No cataplexy. Review of Systems Constitutional: Reports daytime sleepiness, Reports fatigue Eyes: denies as per HPI, denies blurred vision, denies bulging eye, denies decreased vision, denies diplopia, denies discharge, denies dry eye, denies irritation, denies itching, denies pain, denies photophobia, denies loss of peripheral vision, denies loss of vision, denies tunnel vision/blind spots Ears: deny: decreased hearing, ear discharge, earache, tinnitus Ears, nose, mouth and throat: Reports as per HPI Breasts: absent: as per HPI, gynecomastia Cardiovascular: Reports as per HPI Respiratory: Reports snoring Gastrointestinal: Reports as per HPI Genitourinary: Reports as per HPI Musculoskeletal: Reports as per HPI Musculoskeletal: absent: ankle pain, ankle stiffness, ankle swelling, as per HPI, elbow pain, elbow stiffness, elbow swelling, foot pain, foot stiffness, foot swelling, hand pain, hand stiffness, hand swelling, hip pain, hip stiffness, hip swelling, knee pain, knee stiffness, knee swelling, shoulder pain, shoulder stiffness, shoulder swelling, wrist pain, wrist stiffness, wrist swelling Integumentary: Reports as per HPI Neurological: Reports as per HPI Psychiatric: Reports hypersomnia, Reports sleep disturbances Endocrine: Reports as per HPI, Reports fatigue Hematologic/Lymphatic: Reports as per HPI Allergic/Immunologic: Reports as per HPI Past Medical History Past Medical History: No Reported History, Hypertension Additional Past Medical History / Comment(s): History of perianal abscess History of Any Multi-Drug Resistant Organisms: None Reported Past Surgical History: Orthopedic Surgery Additional Past Surgical History / Comment(s): knee, fingers Past Psychological History: No Psychological Hx Reported Smoking Status: Former smoker Past Alcohol Use History: Occasional Past Drug Use History: Marijuana - Past Family History Brother(s) Family Medical History: Diabetes Mellitus Additional Family Medical History / Comment(s): heart cath with stents, [place] Medications and Allergies Home Medications Medication Instructions Recorded Confirmed Type Acetaminophen Tab [Tylenol] 650 mg PO Q6H PRN 01/29/23 01/29/23 History Docusate Sodium [Dok] 100 mg PO BID PRN 01/29/23 01/29/23 History Ibuprofen [Motrin] 600 mg PO Q8HR PRN #30 tab 01/31/23 Rx Levofloxacin [Levaquin] 500 mg PO DAILY 10 Days #10 tab 01/31/23 Rx metroNIDAZOLE [Flagyl] 500 mg PO TID 10 Days #30 tab 01/31/23 Rx oxyCODONE HCL [OxyIR] 5 mg PO Q6H PRN 3 Days #12 tab 01/31/23 Rx Aspirin [Adult Low Dose Aspirin EC] 81 mg PO DAILY 01/01/24 01/01/24 History Losartan Potassium 50 mg PO DAILY 01/01/24 01/01/24 History Allergies Allergy/AdvReac Type Severity Reaction Status Date / Time diphenhydramine Allergy Rash/Hives Verified 12/11/23 14:40 [From Benadryl] loratadine [From Claritin] Allergy Rash/Hives Verified 01/29/23 14:40 Physical Exam Vitals: Vital Signs Temp Pulse Resp BP Pulse Ox 01/01/24 16:31 97.7 F 61 18 144/90 96 Intake and Output 01/01/24 01/01/24 01/01/24 06:59 14:59 22:59 Other: Weight 91.852 kg The patient appeared well nourished and normally developed. Vital signs as documented. Head exam is unremarkable. No scleral icterus or corneal arcus noted. Neck is without jugular venous distension, thyromegaly, or carotid bruits. Carotid upstrokes are brisk bilaterally. Lungs are clear to auscultation and percussion. Cardiac exam reveals the PMI to be normally sized and situated. Rhythm is regular. First and second heart sounds normal. No murmurs, rubs or gallops. Abdominal exam reveals normal bowel sounds, no masses, no organomegaly and no aortic enlargement. Extremities are nonedematous and both femoral and pedal pulses are normal. Examination of the skin revealed no evidence of significant rashes, suspicious a ppearing nevi or other concerning lesions. Neurologically, the patient is awake and alert and the patient does not have any focal neurological deficit. Cranial nerves are essentially intact. Assessment and Plan Plan: Obstructive sleep apnea, failed CPAP therapy in the past and the patient is coming in for evaluation Insufficient sleep syndrome as the patient is averaging around 4 hours of sleep on a 24-hour.. He sleeps longer on weekends. Hypertension Body mass index of 32.9 Lockhart score of 7 Plan Asked the patient to extend the number of hours of sleep. The patient is to go to bed earlier and recommend going to bed at around 9 PM. Importance of adequate sleep and avoiding insufficient sleep syndrome was explained to the patient at length. Maintain good sleep hygiene measures Proceed with a screening polysomnography to reevaluate the presence and severity of sleep apnea and decide if the patient needs CPAP therapy. Will continue to follow. Sleep Note - Sleep Data ESS Total: 7 - Sleep Note Sleep Note: Temperature: 97.7 F Pulse Rate: 61 Respiratory Rate: 18 Blood Pressure: 144/90 SpO2: 96 Height: 5 ft 5.7 in Weight: 91.852 kg BMI: Neck Circumference: 17.5
== END ==
LOC: 3 N SLEEP 15:56
PROVIDERS: ATTEND Internal Medicine Critical Care Medicine
DX: G47.33 Obstructive sleep apnea (adult) (pediatric) (principal); I10 Essential (primary) hypertension; Z88.8 Allergy status to other drugs, medicaments and biological substances; Z79.899 Other long term (current) drug therapy
CPT/HCPCS: 99211

== ENCOUNTER → 2024-01-31 | Outpatient (CLI) | payer BC ==
--- NOTE | 2024-02-05 23:15 | P.PCN ---
Date of Procedure: 01/31/24 Operative Findings: Home sleep study testing Date of service is 01/31/2024 History The patient has been diagnosed having sleep apnea several years back. At that time, the patient was given a home sleep study through his primary care physician. Subsequently, he was given a CPAP machine which she tried for few days and he was unable to tolerate and returned the machine back. Since then, the patient has lost around 20 pounds. He is coming in for evaluation as his was very much concerned of his ongoing snoring. Nevertheless, the patient clearly has a component of insufficient sleep syndrome. He works in [employer] and he lives and [place]. He goes back and forth every day and he works from 5 AM till 5 PM. He goes to bed between 10 to 11 PM and he wakes up 3:10 AM in the morning. As such, the patient is averaging around 4 to 4-1/2 hours of sleep. On weekends, he gets out of bed at around 6 AM and even sleeps approximately 6 to 7 hours. While on the job, he is functional. Does not fall asleep unless he is quite inactive. Does not fall asleep while driving. No 70 motor vehicle accident because of feeling drowsy or sleepy. As mentioned, the patient has lost around 20 pounds. His current body mass index is down to 32.9. No angina. No palpitations. Not nighttime chest pain or shortness of breath. No restlessness in lower extremities. No nocturia. Denies waking up choking and gasping for air. No nightmares. No anxiety. No depression. Does not take any naps after he comes back from work. He gets busy around the house and ultimately goes to bed and sleep at around 10 PM. No sleep paralysis. No hallucinations. No cataplexy. Physical findings The body mass index is 32.9 with a weight of 202.8 pounds Technical description The [employer] [place] [employer] system was used to complete his home sleep study. This is a type III home sleep study evaluation. The total recording duration was 6035 minutes. The study started at 8:34 PM and ended at 3:10 AM. There was a total of 6 hours and 21 minutes of flow monitoring in 6 hours and 11 minutes of oxygen saturation monitoring Results The respiratory analysis showed a total of 9 obstructive apneas and 46 obstructive hypopneas. The resulting AHI is at 8.7 Oxygenation analysis The patient's baseline pulse ox was 94% while awake. Average pulse ox during sleep was 91% and the minimum pulse ox was 78% and this patient spent approximately 27 minutes of sleep time below pulse ox of 89% Cardiac summary Average heart rate was 59 with a minimum heart rate of 44 and a maximum heart rate of 146 Assessment Obstructive sleep apnea, mild in severity with an AHI of 8.7 at baseline. Noted this patient has failed CPAP therapy in the past Insufficient sleep syndrome as the patient is averaging around 4 hours of sleep on a 24-hour.. He sleeps longer on weekends. Hypertension Body mass index of 32.9 Penrose score of 7 Plan Will discussed the findings with the patient. In summary, this is a case of mild obstructive sleep apnea. The establish AHI is at 8.7. Asked the patient to extend the number of hours of sleep. The patient is to go to bed earlier and recommend going to bed at around 9 PM. Importance of adequate sleep and avoiding insufficient sleep syndrome was explained to the patient at length. Maintain good sleep hygiene measures I do not see the immediate need for CPAP therapy especially the patient has failed CPAP therapy in the past. If interested, alternatives such as oral appliance for treatment of obstructive sleep apnea needs to be considered. Continue efforts to lose weight Will set up an appointment for this patient to come to the office and discuss all options and make final recommendations.
== END ==
LOC: 3 N SLEEP 16:29
PROVIDERS: ATTEND Internal Medicine Critical Care Medicine
DX: G47.33 Obstructive sleep apnea (adult) (pediatric) (principal); I10 Essential (primary) hypertension; Z68.32 Body mass index [BMI] 32.0-32.9, adult; Z88.8 Allergy status to other drugs, medicaments and biological substances; Z79.899 Other long term (current) drug therapy